=== PATIENT | male | born 1935 | race Caucasian/White ===

== ENCOUNTER 2017-10-24 13:38 | Emergency (ER) | payer MEDICARE, OTHER ==
[~2017-10-24] VITALS: Ht 170.2 cm; Wt 70.8 kg
[~2017-10-24 13:38] MED LIST: ASPI-1100 PO; ATOR10TA PO; CALC-838 PO; Cyclobenzaprine Hcl PO; GABA-532 PO; TAMS0.4C34 PO; VALS160T2 PO
--- NOTE | 2017-10-24 13:40 | NUR ---
PATIENT TO ED DT URINARY RETENTION X 7 HOURS. PATIENT NOTED FEBRILE- 102.2. PT IN NO DISTRESS. RR EVEN AND UNLABORED. CONNECTED PT TO TELE MONITOR. PENDING MD CALHOUN
[2017-10-24] MEDS ORDERED: LEVOFLOXACIN 750 MG /D5W 150ML 150 ML IV ONE ×2 (15:23→15:30)
[2017-10-24] MEDS ORDERED: ACETAMINOPHEN 325 MG TABLET ONE (15:23)
[2017-10-24] MEDS ORDERED: IV NS 0.9% 1,000 ML BAG IV ONE (15:30)
[2017-10-24] MEDS ORDERED: ACETAMINOPHEN 325 MG TABLET PO ONE (15:30)
[2017-10-24 15:42] LABS: BASOPHILS # (AUTO) 0.2 /CMM (0.0-0.2); BASOPHILS % (AUTO) 1.5 % (0.0-2.0); EOSINOPHILS % (AUTO) 0.1 % (0.0-6.0); HEMATOCRIT 41 % (39-51); HEMOGLOBIN 14.4 g/dL (13.5-17.5); LYMPHOCYTES # (AUTO) 0.7 /CMM (0.8-4.8); LYMPHOCYTES % (AUTO) 5.7 % (20.0-44.0); MEAN CORPUSCULAR HEMOGLOBIN 34 PG (26.0-33.0); MEAN CORPUSCULAR HGB CONC 35 g/dl (31.0-36.0); MEAN CORPUSCULAR VOLUME 99 fL (80-96); MONOCYTES # (AUTO) 0.9 /CMM (0.1-1.30); MONOCYTES % (AUTO) 8.2 % (2.0-12.0); NEUTROPHILS # (AUTO) 9.7 /CMM (1.8-8.9); NEUTROPHILS % (AUTO) 84.5 % (43.0-81.0); PLATELET COUNT (AUTO) 172 /CMM (150-450); RDW COEFFICIENT OF VARIATION 13.4 (11.5-15.0); RED BLOOD CELL COUNT(AUTO) 4.18 MIL/uL (4.5-6.0); WHITE BLOOD COUNT (AUTO) 11.5 K/uL (4.3-11.0)
[2017-10-24 15:55] LABS: CALCIUM, SERUM 9.6 mg/dL (8.5-10.1); CARBON DIOXIDE 28 mmol/L (21-32); CHLORIDE 103 mmol/L (98-107); CREATININE 0.9 mg/dL (0.6-1.3); GLUCOSE 158 mg/dL (74-106); POTASSIUM 3.6 mmol/L (3.5-5.1); SODIUM SERUM 141 mmol/L (136-145); UREA NITROGEN, BLOOD 20 mg/dL (7-18)
[2017-10-24 15:55] LABS: APPEARANCE,URINE Clear (CLEAR); BILIRUBIN,URINE Negative (NEGATIVE); BLOOD, URINE Trace-intact Ery/uL (NEGATIVE); COLOR,URINE Yellow (YELLOW); KETONES,URINE Trace (NEGATIVE); LEUKOCYTE ESTERASE ,URINE Negative (NEGATIVE); NITRITE, URINE Negative (NEGATIVE); PROTEIN,URINE Negative (NEGATIVE); UGLUCOSE Negative (NEGATIVE); UROBILINOGEN,URINE 0.2 EU/dL (0.2)
[2017-10-24 15:59] LABS: INR 1.04 (0.87-1.13); PROTHROMBIN TIME 10.8 SECS (9.5-12.7)
[2017-10-24 16:01] LABS: ALANINE AMINOTRANSFERASE 29 U/L (12-78); ALBUMIN 3.7 g/dL (3.4-5.0); ALKALINE PHOSPHATASE 104 U/L (46-116); ASPARTATE AMINOTRANSFERASE 24 U/L (15-37); BILIRUBIN,DIRECT 0.2 mg/dL (0.0-0.2); BILIRUBIN,TOTAL 0.9 mg/dL (0.2-1.0); TOTAL PROTEIN, SERUM 7.3 g/dL (6.4-8.2)
[2017-10-24 16:03] LABS: TROPONIN I < 0.017 ng/mL (0.00-0.056)
[2017-10-24 16:05] LABS: BACTERIA,URINE Rare /HPF (None Seen); SQUAMOUS EPITHELIAL CELL,UR Few /HPF (None Seen); WBC,URINE 0-2 /HPF (0-3)
[2017-10-24 17:43] VITALS: BP 120/80
--- NOTE | 2017-10-24 17:43 | NUR ---
Patient discharged to home in stable condition. Written and verbal after care instructions given. Patient verbalizes understanding of instruction.IV removed. Catheter intact and site benign. Pressure and 4x4 applied to site. No bleeding noted.
== END 2017-10-24 17:44 | disposition home or self-care (01) ==
LOC: ER 13:40
DX: R33.8 Other retention of urine (principal); R50.9 Fever, unspecified; I10 Essential (primary) hypertension; Z86.73 Personal history of transient ischemic attack (TIA), and cerebral infarction without residual deficits; Z88.1 Allergy status to other antibiotic agents; Z88.8 Allergy status to other drugs, medicaments and biological substances; Z79.82 Long term (current) use of aspirin
CPT/HCPCS: 36415; 51702; 71010; 80048; 80076; 81001; 83605; 84484; 85025; 85730; 87040 ×2; 87086; 93005; 99285; A4606; J1956; J7030; 81000-TC; Z7610

== ENCOUNTER 2018-05-24 21:06 | Inpatient (IN) | payer MEDICAID, MEDICARE ==
[~2018-05-24] VITALS: Ht 170.2 cm; Wt 72.6 kg
[2018-05-24] MEDS ORDERED: ACETAMINOPHEN ES 500 MG TABLET ONE (21:17)
[2018-05-24] MEDS ORDERED: ONDANSETRON HCL/PF 4 MG/2 ML VIAL ONE (21:17)
--- NOTE | 2018-05-24 21:25 | NUR ---
BIB RA C/C OF N/V X 2 DAYS. SECONDARY TO FEVER AND ABDOMINAL PAIN. CURRENT TEMP 101.5. PT AA/OX4. NO S/S OF SOB. DENIES CHEST PAIN. ACTIVE BOWEL MOVEMENTS. NO GAURDING TO ABDOMEN. PEDAL PULSES PRESENT. SKINS PINK WARM AND DRY. STABLE CONDITION. AWAITING MD EVAL/ ORDERS.
--- NOTE | 2018-05-24 21:28 | NUR ---
HEAD TRANSFER CLERK IS AT THE BEDSIDE FOR BLOOD DRAW. CULTURES X2 DRAWN. URINE SAMPLE SENT TO LAB.
--- NOTE | 2018-05-24 21:29 | NUR ---
XRAY IN PROGRESS AT THE BEDSIDE.
[2018-05-24] MEDS ORDERED: IV NS 0.9% 1,000 ML BAG IV ONE (21:30)
[2018-05-24] MEDS ORDERED: ACETAMINOPHEN ES 500 MG TABLET PO ONE (21:30)
[2018-05-24] MEDS ORDERED: ONDANSETRON HCL/PF 4 MG/2 ML VIAL IVP ONE (21:30)
[2018-05-24 21:33] LABS: BASOPHILS % (AUTO) 0.3 % (0.0-2.0); HEMATOCRIT 38 % (39-51); HEMOGLOBIN 12.8 g/dL (13.5-17.5); LYMPHOCYTES # (AUTO) 0.4 /CMM (0.8-4.8); MEAN CORPUSCULAR HEMOGLOBIN 33 PG (26.0-33.0); MEAN CORPUSCULAR HGB CONC 34 g/dl (31.0-36.0); MEAN CORPUSCULAR VOLUME 98 fL (80-96); MONOCYTES # (AUTO) 0.6 /CMM (0.1-1.30); NEUTROPHILS # (AUTO) 4.2 /CMM (1.8-8.9); NEUTROPHILS % (AUTO) 78.7 % (43.0-81.0); PLATELET COUNT (AUTO) 155 /CMM (150-450); RDW COEFFICIENT OF VARIATION 12.4 (11.5-15.0); RED BLOOD CELL COUNT(AUTO) 3.85 MIL/uL (4.5-6.0); WHITE BLOOD COUNT (AUTO) 5.3 K/uL (4.3-11.0)
[2018-05-24 21:40] LABS: APPEARANCE,URINE Clear (CLEAR); BILIRUBIN,URINE Negative (NEGATIVE); BLOOD, URINE Small Ery/uL (NEGATIVE); COLOR,URINE Yellow (YELLOW); KETONES,URINE Negative (NEGATIVE); LEUKOCYTE ESTERASE ,URINE Negative (NEGATIVE); NITRITE, URINE Negative (NEGATIVE); PH,URINE 6.5 (5.0-8.0); PROTEIN,URINE Negative (NEGATIVE); UGLUCOSE Negative (NEGATIVE); UROBILINOGEN,URINE 0.2 EU/dL (0.2)
[2018-05-24 21:49] LABS: ALANINE AMINOTRANSFERASE 42 U/L (12-78); ALBUMIN 3.3 g/dL (3.4-5.0); ALKALINE PHOSPHATASE 104 U/L (46-116); ASPARTATE AMINOTRANSFERASE 30 U/L (15-37); BILIRUBIN,DIRECT 0.1 mg/dL (0.0-0.2); BILIRUBIN,TOTAL 0.3 mg/dL (0.2-1.0); CALCIUM, SERUM 8.9 mg/dL (8.5-10.1); CARBON DIOXIDE 29 mmol/L (21-32); CHLORIDE 97 mmol/L (98-107); CREATININE 1.1 mg/dL (0.6-1.3); GLUCOSE 156 mg/dL (74-106); POTASSIUM 4.1 mmol/L (3.5-5.1); SODIUM SERUM 132 mmol/L (136-145); TOTAL PROTEIN, SERUM 7.2 g/dL (6.4-8.2); UREA NITROGEN, BLOOD 15 mg/dL (7-18)
[2018-05-24 21:51] LABS: BACTERIA,URINE Few /HPF (None Seen); SQUAMOUS EPITHELIAL CELL,UR Few /HPF (None Seen); WBC,URINE 0-2 /HPF (0-3)
[2018-05-24 21:52] LABS: TROPONIN I < 0.017 ng/mL (0.00-0.056)
[2018-05-24 22:03] LABS: INR 1.06 (0.85-1.15)
--- NOTE | 2018-05-24 22:20 | NUR ---
DR. PICKETT AT THE BEDSIDE.
--- NOTE | 2018-05-24 22:20 | NUR ---
RT NARE INFLUENZA SWAB DONE. LAB CALLED FOR P/U.
[2018-05-24] MEDS ORDERED: IV NS 0.9% 1,000 ML IV ONE (22:22)
--- NOTE | 2018-05-24 22:23 | NUR ---
Patient is resting comfortably in bed with eyes closed. Easily aroused. VSS. FAMILY AT BEDSIDE. SAFETY MEASURES IN PLACE. CALL LIGHT WITHIN REACH.
[2018-05-24] MEDS ORDERED: IBUPROFEN 400 MG TABLET PO ONE (23:30)
[2018-05-24] MEDS ORDERED: GABA-534 PO (23:42)
--- NOTE | 2018-05-24 23:50 | NUR ---
ASSIGNED TO MED SURG RM#: [id number], DX: FEVER, ACCEPTING: CHIDI ERNST NP
[2018-05-24] MEDS ORDERED: BIMA2.5D5 OP (23:59)
[2018-05-24] MEDS ORDERED: PRED5DRO16 OP (23:59)
[2018-05-24] MEDS ORDERED: BRIM5DRO3 OP (23:59)
[2018-05-24] MEDS ORDERED: TIMO5SOL11 OP (23:59)
--- NOTE | 2018-05-25 00:07 | NUR ---
REPORT GIVEN TO MED/SURGE RICKY ANN
[2018-05-25 00:25] VITALS: BP 107/51
[2018-05-25 00:30] VITALS: BP 107/51
[2018-05-25] MEDS ORDERED: MAG HYDROX/AL HYDROX/SIMETH 30 ML UDC PO PRN (00:30)
[2018-05-25] MEDS ORDERED: MAGNESIUM HYDROXIDE 30 ML UDC PO PRN (00:30)
[2018-05-25] MEDS ORDERED: HYDROCODONE/APAP 5/325MG 1 EACH TABLET PO PRN (00:30)
[2018-05-25] MEDS ORDERED: ONDANSETRON HCL/PF 4 MG/2 ML VIAL IVP PRN (00:30)
[2018-05-25] MEDS ORDERED: ACETAMINOPHEN 325 MG TABLET PO PRN (00:30)
[2018-05-25] MEDS ORDERED: Z GUARD REMEDY 2 OZ OINT TP PRN (00:30)
--- NOTE | 2018-05-25 00:34 | NUR ---
PT TRANSP TO MED/SURG STABLE CONDITION. NAD. VSS.
--- NOTE | 2018-05-25 00:35 | NUR ---
RN OPENING NOTES RECEIVED REPORT FROM DOCUMENT ADVISOR ALEXUS. Pt ARRIVED TO THE FLOOR VIA GURNEY. WITH FAMILY AT BEDSIDE. Pt IS AMBULATORY WITH STEADY GAIT. NO S/S OF ACUTE DISTRESS OR SOB NOTED. MEDSURG Pt. Pt IS A/OX4, VERBAL, ABLE TO MAKE NEEDS KNOWN. NIGERIEN SPEAKING, BUT IS OK WITH SOME ALGERIAN. IV ACCESS ON LFA #18G. SAFETY MEASURES IN PLACE. BED LOW, LOCKED, HOB ELEVATED, SIDE RAILS UP, CALL LIGHT AND BEDSIDE TABLE WITHIN REACH. WILL CONTINUE TO MONITOR Pt THROUGHOUT THE NIGHT FOR SAFETY.
[2018-05-25] MEDS: IV NS 0.9% 1,000 ML IV PRN (05:25)
[2018-05-25 06:31] LABS: BASOPHILS % (AUTO) 0.2 % (0.0-2.0); EOSINOPHILS % (AUTO) 0.9 % (0.0-6.0); HEMATOCRIT 35 % (39-51); LYMPHOCYTES # (AUTO) 0.9 /CMM (0.8-4.8); LYMPHOCYTES % (AUTO) 19.9 % (20.0-44.0); MEAN CORPUSCULAR HEMOGLOBIN 34 PG (26.0-33.0); MEAN CORPUSCULAR HGB CONC 34 g/dl (31.0-36.0); MEAN CORPUSCULAR VOLUME 100 fL (80-96); MONOCYTES # (AUTO) 0.9 /CMM (0.1-1.30); MONOCYTES % (AUTO) 19.3 % (2.0-12.0); NEUTROPHILS # (AUTO) 2.7 /CMM (1.8-8.9); NEUTROPHILS % (AUTO) 59.7 % (43.0-81.0); PLATELET COUNT (AUTO) 124 /CMM (150-450); WHITE BLOOD COUNT (AUTO) 4.5 K/uL (4.3-11.0)
[2018-05-25 06:41] LABS: CHOLESTEROL 83 mg/dL (<200); HDL CHOLESTEROL 40 mg/dL (40-60); LDL 37 mg/dL (0-99); THYROID STIMULATING HORMONE 0.672 uIU/mL (0.358-3.74); TRIGLYCERIDES 51 mg/dL (30-150)
--- NOTE | 2018-05-25 06:45 | NUR ---
RN CLOSING NOTES NO SIGNIFICANT CHANGES IN Pt's CONDITION. Pt REMAINS STABLE AT THIS TIME. NO S/S OF ACUTE DISTRESS OR SOB NOTED DURING THE NIGHT. ALL NEEDS MET AND ATTENDED TO. SAFETY MEASURES IN PLACE. WILL ENDORSE TO DAYSHIFT RN FOR Pt's NATE.
[2018-05-25 06:55] LABS: CARBON DIOXIDE 27 mmol/L (21-32); CHLORIDE 106 mmol/L (98-107); CREATININE 0.9 mg/dL (0.6-1.3); GLUCOSE 120 mg/dL (74-106); MAGNESIUM 1.9 mg/dL (1.8-2.4); PHOSPHORUS 3.3 mg/dL (2.5-4.9); POTASSIUM 3.8 mmol/L (3.5-5.1); SODIUM SERUM 142 mmol/L (136-145); UREA NITROGEN, BLOOD 12 mg/dL (7-18)
[2018-05-25 07:01] LABS: CALCIUM, SERUM 8.3 mg/dL (8.5-10.1)
--- NOTE | 2018-05-25 07:15 | NUR ---
MS RN INITIAL NOTES Received patient asleep on supine position. No signs of discomfort noted. with patent and intact SL @ LFA G#18 with NS infusing well at 75ml/hr. Afebrile at this time. Kept clean dry and comfortable. Will monitor accordingly.
[2018-05-25 08:00] VITALS: BP 110/60
[2018-05-25] MEDS: TAMSULOSIN 0.4 MG CAP.SR.24H PO SCH (08:45)
[2018-05-25] MEDS: ASPIRIN EC 81 MG TABLET.DR PO SCH (08:45)
[2018-05-25] MEDS: GABAPENTIN 300 MG CAPSULE PO SCH (08:45)
[2018-05-25] MEDS: ATORVASTATIN 10 MG TABLET PO SCH (08:45)
--- NOTE | 2018-05-25 08:45 | NUR ---
ms rn notes Dr. Villafana on site and informed regarding patient on Gabapentin 300 mg and 600 mg at the same time due at 9am and per MD to d/c 600 mg capsule and okay to give 300mg capsule. All orders carried out and noted.
[2018-05-25] MEDS ORDERED: GABAPENTIN 300 MG CAPSULE PO SCH (09:00)
[2018-05-25] MEDS: VALSARTAN 80 MG TABLET PO SCH (09:41)
[2018-05-25 09:48] LABS: BAND % (MANUAL) 1 % (0.0-5.0); LYMPHOCYTES % (MANUAL) 15 % (16-48); MONOCYTES % (MANUAL) 9 % (0-11.0); NEUTROPHILS % (MANUAL) 75 (42-76)
[2018-05-25] MEDS ORDERED: TIMOLOL -XE 0.5% 5 ML BOTTLE LEFTEYE SCH (10:00)
[2018-05-25] MEDS: CALCIUM CARB 600MG /VIT D 1 EACH TABLET PO SCH (11:26)
[2018-05-25] MEDS: prednisoLONE ACET 1% OPHT DROP 5 ML BOTTLE LEFTEYE SCH ×2 (11:37→16:26)
[2018-05-25] MEDS: BRIMONIDINE TARTRATE OPHT SOLN 5 ML BOTTLE LEFTEYE SCH ×2 (11:38→16:25)
[2018-05-25] MEDS ORDERED: CYCLOBENZAPRINE 10 MG TABLET PO PRN (13:00)
[2018-05-25 16:00] VITALS: BP 121/60
[2018-05-25] MEDS: TIMOLOL 0.5% SOLN OPHTH 5 ML BOTTLE LEFTEYE SCH (16:27)
--- NOTE | 2018-05-25 16:44 | NUR ---
Patient speaks [place] and alert. She lives locally with family. She is ambulatory and independent with adl's. No DME or homehealth reported. Has good family support. Patient want to return home once discharge. Addendum: 05/25/18 at 1644 by ABAD CARNEY RN Amended: Links added.
[2018-05-25] MEDS ORDERED: FEE PK DOSING 1 MIN EA MC ONE (17:32)
[2018-05-25] MEDS: OSELTAMIVIR PHOSPHATE 75 MG CAPSULE PO SCH (17:43)
[2018-05-25] MEDS: VANCOMYCIN 0.75 GM in IV NS 0.9% 250 ML IV SCH (18:10)
--- NOTE | 2018-05-25 18:49 | NUR ---
MS RN CLOSING NOTES Patient awake on bed, with no complaints of discomfort, no respiratory distress noted. Afebrile the whole shift. Independent in ADLs with supervision for safety precautions. No new complaints made. All new orders were noted, given with no ASE noted. Patient able to tolerate physical activities without complications noted. All needs attended. Endorsed to the next shift.
--- NOTE | 2018-05-25 19:30 | NUR ---
RN MS OPENING NOTES RECEIVED PATIENT IN BED AWAKE. ALERT AND ORIENTED X3, VERBALLY RESPONSIVE, ABLE TO MAKE NEEDS KNOWN. BREATHING EVEN AND UNLABORED. NO SOB NOTED. ON 2L OF OXYGEN VIA NC SATTING AT 95%. NO COMPLAINTS OF PAIN OR DISCOMFORT. NO FACIAL GRIMACING. IV ON LEFT FA# 18 INTACT AND PATENT - CURRENTLY RUNNING NS @ 75ML/HR. SKIN DRY AND WARM TO TOUCH. ALL OTHER NEEDS ATTENDED TO. CALL LIGHT WITHIN REACH. BED ON LOWEST LOCKED POSITION. WILL CONTINUE TO MONITOR.
[2018-05-25 20:00] VITALS: BP 130/68
[2018-05-25] MEDS ORDERED: AZITHROMYCIN 500 MG in IV D5W 250 ML IV SCH (20:00)
[2018-05-25] MEDS: MEROPENEM 1 G in IV NS 0.9% 100 ML IV SCH (21:42)
[2018-05-25] MEDS ORDERED: BIMATOPROST 2.5 ML DROPS OP SCH (22:00)
--- NOTE | 2018-05-25 22:00 | NUR ---
RN MS NOTES LUMIGAN EYEDROPS NOT AVAILABLE. CHECKED CASSETTE AND BEDSIDE BUT NOT FOUND. CALLED AFTER HOURS PHARMACY AND SPOKE WITH ALANIS. PER OCT "IT SEEMS IF IT WAS NOT DELIVERED BY THE [facility], AND IF IT WILL BE DELIVERED THROUGH THEM, IT WILL COST THE PATIENT ABOUT $800+. PER OCT, FOLLOW-UP IN THE MORNING WITH THE [facility] PH[facility].
--- NOTE | 2018-05-25 22:51 | NUR ---
RN MS NOTES MILLIE MACHUCA, MADE AWARE OF BLOOD CULTURE RESULTS OF GRAM POSITIVE COCCI IN CLUSTERS IN 1 BOTTLE, WITH NO NEW ORDERS. PER MILLIE MACHUCA WE'LL WAIT FOR THE NEXT BOTTLE.
[2018-05-26] MEDS: IV NS 0.9% 1,000 ML IV PRN (03:37)
[2018-05-26] MEDS: MEROPENEM 1 G in IV NS 0.9% 100 ML IV SCH ×2 (04:04→12:36)
--- NOTE | 2018-05-26 04:15 | NUR ---
RN NOTES CHECKED TEMPERATURE TWICE. 1ST ATTEMPT 99.6F AND SECOND ATTEMPT 100.2. PATIENT WAS GIVEN 650MG OF TYLENOL WELL AN ICE BAG. WILL CONTINUE TO MONITOR.
--- NOTE | 2018-05-26 05:00 | NUR ---
RN MS NOTES PATIENT'S TEMPERATURE WENT DOWN TO 98.9F
[2018-05-26] MEDS: VANCOMYCIN 0.75 GM in IV NS 0.9% 250 ML IV SCH ×2 (05:07→17:42)
--- NOTE | 2018-05-26 07:03 | NUR ---
RN MS CLOSING NOTES PATIENT RESTING IN BED. EASILY AROUSABLE. ALERT AND ORIENTED X3, VERBALLY RESPONSIVE, ABLE TO MAKE NEEDS KNOWN. BREATHING EVEN AND UNLABORED. NO SOB NOTED. ON 2L OF OXYGEN VIA NC SATTING AT 96%. NO COMPLAINTS OF PAIN OR DISCOMFORT. NO FACIAL GRIMACING. IV ON LEFT FA# 18 INTACT AND PATENT - CURRENTLY RUNNING NS @ 75ML/HR. SKIN DRY AND WARM TO TOUCH. KEPT CLEAN, DRY, AND COMFORTABLE. ALL OTHER NEEDS ATTENDED TO. CALL LIGHT WITHIN REACH. BED ON LOWEST LOCKED POSITION. WILL ENDORSE TO ONCOMING NURSE FOR CONTINUITY FOR CARE.
--- NOTE | 2018-05-26 07:24 | NUR ---
MS RN OPENING NOTE RECEIVED PATIENT IN BED, ALERT ORIENTED X4. ON 2L O2 VIA NC. TOLERATING WELL. RESPIRATIONS EVEN AND UNLABORED. IN NO APPARENT DISTRESS OR DISCOMFORT AT THIS TIME. DENIES PAIN AND SOB. PATIENT IS ABLE TO COMMUNICATE NEEDS. AMBULATORY WITH BRP. PATIENT IWTH LEFT FA 18G IVC WITH FLUIDS RUNNING AT 75ML/HR. NO SIGNS OF INFILTRATION NOTED. PATIENT KEPT CLEAN AND COMFORTABLE, ALL NEEDS ATTENDED. SAFETY MEASURES IN PLACE, BED IN LOW LOCKED POSITION, SIDE RAILS UP X2, CALL LIGHT WITHIN EASY REACH. WILL CONTINUE TO MONITOR.
[2018-05-26 08:00] VITALS: BP 137/63
[2018-05-26] MEDS: GABAPENTIN 300 MG CAPSULE PO SCH (08:25)
[2018-05-26] MEDS: CALCIUM CARB 600MG /VIT D 1 EACH TABLET PO SCH (08:25)
[2018-05-26] MEDS: VALSARTAN 80 MG TABLET PO SCH (08:25)
[2018-05-26] MEDS: TAMSULOSIN 0.4 MG CAP.SR.24H PO SCH (08:25)
[2018-05-26] MEDS: ATORVASTATIN 10 MG TABLET PO SCH (08:25)
[2018-05-26] MEDS: ASPIRIN EC 81 MG TABLET.DR PO SCH (08:25)
[2018-05-26] MEDS: prednisoLONE ACET 1% OPHT DROP 5 ML BOTTLE LEFTEYE SCH ×2 (08:26→16:12)
[2018-05-26] MEDS: BRIMONIDINE TARTRATE OPHT SOLN 5 ML BOTTLE LEFTEYE SCH ×2 (08:26→16:12)
[2018-05-26] MEDS: TIMOLOL 0.5% SOLN OPHTH 5 ML BOTTLE LEFTEYE SCH ×2 (08:26→16:12)
[2018-05-26] MEDS: OSELTAMIVIR PHOSPHATE 75 MG CAPSULE PO SCH (08:29)
--- NOTE | 2018-05-26 09:00 | NUR ---
PATIENT NOTED TO HAVE INFILTRATED IV SITE. IV FLUIDS WERE DISCONNECTED. NEW IV PLACED IN THE OPPOSITE ARM. PREVIOUS IV CANAL WAS REMOVED, EXTREMITY ELEVATED AND ICE PACK APPLIED. WILL CONTINUE TO MONITOR.
--- NOTE | 2018-05-26 12:00 | NUR ---
INFILTRATED SITE ON PATIENT'S LEFT FOREARM STILL APPEARS ERYTHEMATOUS. ICE PACK REINFORCED TO THE PATIENT. REFUSED AT THIS TIME. STATES HE WILL PUT IT AGAIN LATER.
--- NOTE | 2018-05-26 13:30 | NUR ---
PATIENT REMAINS AFEBRILE. BODY TEMPERATURE IS 98.5 AT THIS TIME.
[2018-05-26] MEDS ORDERED: BIMATOPROST 2.5 ML DROPS OP SCH (14:19)
--- NOTE | 2018-05-26 15:00 | NUR ---
PATIENT APPLIED ICE PACK TO THE AFFECTED ARE FOR SOME PERIOD OF TIME, THEN REMOVED AGAIN. ERYTHEMA HAS IMPROVED SLIGHTLY. PATIENT IS NON-COMPLIANT WITH DIRECTIONS, STATES HE WILL PUT SOME ICE LATER AFTER HE GOES HOME.
[2018-05-26 16:00] VITALS: BP 148/67
[2018-05-26] MEDS ORDERED: AZIT1PAC9 PO (16:36)
[2018-05-26] MEDS ORDERED: LACTOBACILLUS RHAMNOSUS GG 1 EACH CAP.SPRINK PO SCH (17:00)
--- NOTE | 2018-05-26 18:00 | NUR ---
WARM PACK APPLIED TO PATIENT'S AFFECTED ARM. SWELLING AND REDNESS DECREASED SIGNIFICANTLY. HOWEVER PATIENT REMOVED THE PACK AGAIN AFTER SHORT PERIOD OF TIME. WILL REINFORCE TREATMENT AND CONTINUE TO MONITOR.
--- NOTE | 2018-05-26 19:00 | NUR ---
MS FLIGHT DATA TECHNICIAN NOTE RECEIVED ODER FOR DISCHARGE. PATIENT IN STABLE CONDITION, VITAL SIGNS WNL. ALERT ORIENTED X4. ON ROOM AIR WITH O2 SATURATION ABOVE 97%. ALL DUE MEDICATIONS GIVEN, DISCHARGE INSTRUCTIONS PREPARED VIA EXITCARE. EDUCATION PROVIDED TO THE PATIENT, VERBALLY AND VIA HANDOUT, REGARDING NEW AND OLD MEDICATIONS, DISCHARGE INSTRUCTIONS AND FOLLOW UP CARE. PAPERWORK SIGNED, NEW PRESCRIPTION FOR MEDICATION IS AVAILABLE FOR PICKUP AT THEIR PREFERRED PHARMACY. ALL BELONGINGS ARE CHECKED AND ACCOUNTED FOR. IVC REMOVED UPON DEPARTURE, TIP INTACT, NO SIGN OF INFECTION OBSERVED. ID BAND REMOVED. PATIENT LEFT THE UNIT ON A WHEELCHAIR ESCORTED BY ABIOLA PRATT AND THE FAMILY AT 1855.
[2018-05-26] MEDS ORDERED: TIMOLOL 0.5% SOLN OPHTH 5 ML BOTTLE LEFTEYE SCH (21:00)
[2018-05-26] MEDS ORDERED: prednisoLONE ACET 1% OPHT DROP 5 ML BOTTLE LEFTEYE SCH (21:00)
[2018-05-26] MEDS ORDERED: BRIMONIDINE TARTRATE OPHT SOLN 5 ML BOTTLE LEFTEYE SCH (21:00)
== END 2018-05-26 19:00 | disposition home or self-care (01) | DRG 153 ==
LOC: ER 21:12 → MED 23:52
PROVIDERS: ADMIT Nurse Practitioner Acute Care; ATTEND Nurse Practitioner Acute Care
DX: J11.1 Influenza due to unidentified influenza virus with other respiratory manifestations (principal); E87.1 Hypo-osmolality and hyponatremia; I10 Essential (primary) hypertension; Z86.73 Personal history of transient ischemic attack (TIA), and cerebral infarction without residual deficits; N40.0 Benign prostatic hyperplasia without lower urinary tract symptoms; G62.9 Polyneuropathy, unspecified; E78.5 Hyperlipidemia, unspecified; I70.90 Unspecified atherosclerosis; Z87.891 Personal history of nicotine dependence; I25.10 Atherosclerotic heart disease of native coronary artery without angina pectoris; K21.9 Gastro-esophageal reflux disease without esophagitis
CPT/HCPCS: 36415; 71045-TC; 80048-TC; 80061-TC; 80076-TC; 81000-TC; 83605-TC; 83735-TC; 84100-TC; 84443-TC; 84484-TC; 85025-TC; 85730-TC; 87040-TC; 87081-TC; 87086-TC; 87400; A4606; J0456; J2185; J2405; J3370; J7030; J7050; J7060; Z7610

== ENCOUNTER 2021-11-01 09:36 | Inpatient (IN) | payer MEDICAID, MEDICARE, OTHER ==
[~2021-11-01] VITALS: Ht 170.2 cm; Wt 73.9 kg
[~2021-11-01 09:36] MED LIST changes: +AZIT1PAC9 PO; +BIMA2.5D5 OP; +BRIM5DRO3 OP; -GABA-532 PO; +GABA-534 PO; +PRED5DRO16 OP; +TIMO5SOL11 OP
--- NOTE | 2021-11-01 10:10 | NUR ---
BIB FAMILY FROM HOME,"SICK"SINCE ,NO APPETITE,CONFUSED/SLOW TO RESPOND X3 DAYS. BREATHING REGULAR AND UNLABORED. ATTCHED TO MONITOR.
--- NOTE | 2021-11-01 10:10 | NUR ---
MOVE SHEET SUBMITTED
--- NOTE | 2021-11-01 10:21 | NUR ---
IV ESTABLISHED #20G R FOREARM, LABS WERE DRAWN A COLLECTED AT BEDSIDE, CONVERTED TO SALIN LOCK
--- NOTE | 2021-11-01 10:29 | NUR ---
COVID PCR AND ANTIGEN TAKEN AND COLLECTED.
[2021-11-01] MEDS ORDERED: IV NS 0.9% 500 ML BAG IV ONE (10:30)
[2021-11-01 10:42] LABS: BASOPHILS % (AUTO) 0.2 % (0.0-2.0); HEMATOCRIT 37 % (39-51); HEMOGLOBIN 12.3 g/dL (13.5-17.5); LYMPHOCYTES # (AUTO) 0.6 K/uL (0.8-4.8); LYMPHOCYTES % (AUTO) 18.3 % (20.0-44.0); MEAN CORPUSCULAR HGB CONC 34 g/dl (31.0-36.0); MEAN CORPUSCULAR VOLUME 101 fL (80-96); MONOCYTES # (AUTO) 0.6 K/uL (0.1-1.30); MONOCYTES % (AUTO) 19.5 % (2.0-12.0); NEUTROPHILS # (AUTO) 2.1 K/uL (1.8-8.9); PLATELET COUNT (AUTO) 128 K/uL (150-450); RED BLOOD CELL COUNT(AUTO) 3.62 MIL/uL (4.5-6.0); WHITE BLOOD COUNT (AUTO) 3.3 K/uL (4.3-11.0)
--- NOTE | 2021-11-01 10:49 | NUR ---
Note juani in ED - 11/01/21 at 1050 by CARMEN BIB FAMILY FROM HOME,"SICK"SINCE ,NO APPETITE,CONFUSED/SLOW TO RESPOND X3 DAYS. BREATHING REGULAR AND UNLABORED. ATTCHED TO MONITOR.
[2021-11-01] MEDS ORDERED: DUTA0.5C37 PO (11:06)
[2021-11-01] MEDS ORDERED: AMLO-212 PO (11:06)
[2021-11-01] MEDS ORDERED: METF-440 PO (11:06)
[2021-11-01] MEDS ORDERED: BRIM5DRO2 LEFTEYE (11:06)
[2021-11-01] MEDS ORDERED: LATA2.5D15 LEFTEYE (11:08)
[2021-11-01] MEDS ORDERED: LOSA50TA39 PO (11:09)
--- NOTE | 2021-11-01 11:12 | NUR ---
PT TAKEN TO CT
[2021-11-01 11:16] LABS: THYROID STIMULATING HORMONE 0.742 uIU/mL (0.358-3.74)
--- NOTE | 2021-11-01 11:30 | NUR ---
PATIENT GOT AUTHORIZATION TO GET ADMITTED
--- NOTE | 2021-11-01 11:40 | NUR ---
URINE COLLECTED AND SENT
--- NOTE | 2021-11-01 11:55 | NUR ---
[facility] [phone]
[2021-11-01 12:00] LABS: BILIRUBIN,URINE NEGATIVE (NEGATIVE); COLOR,URINE YELLOW (YELLOW); LEUKOCYTE ESTERASE ,URINE NEGATIVE (NEGATIVE); NITRITE, URINE NEGATIVE (NEGATIVE); PROTEIN,URINE NEGATIVE (NEGATIVE); UGLUCOSE NEGATIVE (NEGATIVE); UROBILINOGEN,URINE 0.2 EU/dL (0.2)
[2021-11-01 12:01] LABS: ALANINE AMINOTRANSFERASE 32 U/L (12-78); ALKALINE PHOSPHATASE 62 U/L (46-116); ASPARTATE AMINOTRANSFERASE 30 U/L (15-37); BILIRUBIN,DIRECT 0.1 mg/dL (0.0-0.2); BILIRUBIN,TOTAL 0.4 mg/dL (0.2-1.0); CALCIUM, SERUM 8.7 mg/dL (8.5-10.1); CARBON DIOXIDE 22 mmol/L (21-32); CHLORIDE 92 mmol/L (98-107); CREATININE 1.1 mg/dL (0.6-1.3); GLUCOSE 182 mg/dL (74-106); POTASSIUM 4.3 mmol/L (3.5-5.1); SODIUM SERUM 128 mmol/L (136-145); TOTAL PROTEIN, SERUM 7.3 g/dL (6.4-8.2); UREA NITROGEN, BLOOD 20 mg/dL (7-18)
--- NOTE | 2021-11-01 12:50 | NUR ---
CALLED FOR TELE BED.
--- NOTE | 2021-11-01 12:54 | NUR ---
GOT BED 115-2
--- NOTE | 2021-11-01 12:55 | NUR ---
[facility] CALLED STRESS ANALYST PAGED.
[2021-11-01] MEDS ORDERED: DEXAMETHASONE SOD PHOSPHATE 10 MG/ML VIAL IV ONE (13:30)
--- NOTE | 2021-11-01 13:40 | NUR ---
CALLED [facility] AGAIN BEHAVIORAL INSTRUCTOR PAGED.
[2021-11-01] MEDS ORDERED: DEXAMETHASONE SOD PHOSPHATE 10 MG/ML VIAL ONE (13:54)
--- NOTE | 2021-11-01 14:10 | NUR ---
Anya gloria in [place] - 11/01/21 at 1554 by CARMEN REPORT GIVEN TO ONEIDA
[2021-11-01] MEDS ORDERED: ONDANSETRON HCL/PF 4 MG/2 ML VIAL IVP PRN (15:00)
[2021-11-01] MEDS ORDERED: MAG HYDROX/AL HYDROX/SIMETH 30 ML UDC PO PRN (15:00)
[2021-11-01] MEDS ORDERED: Z GUARD REMEDY 4 OZ OINT TP PRN (15:00)
[2021-11-01] MEDS ORDERED: MAGNESIUM HYDROXIDE 30 ML UDC PO PRN (15:00)
[2021-11-01] MEDS ORDERED: ZOLPIDEM TARTRATE 5 MG TABLET PO PRN (15:00)
[2021-11-01] MEDS ORDERED: HYDROCODONE/APAP 5/325MG TABLET PO PRN (15:00)
[2021-11-01] MEDS ORDERED: ACETAMINOPHEN 325 MG TABLET PO PRN (15:00)
[2021-11-01] MEDS ORDERED: ALBUTEROL FS 2.5 MG/0.5 ML VIAL.NEB IH PRN (15:30)
[2021-11-01] MEDS: LEVOFLOXACIN 750 MG /D5W 150ML 750 MG in PREMIX 1 EA IV SCH (15:32)
[2021-11-01 15:42] LABS: C-REACTIVE PROTEIN 3.6 mg/dL (0.0-0.9)
[2021-11-01 15:49] LABS: ACETAMINOPHEN 0 ug/ml (10-30); ALCOHOL, BLOOD < 3 mg/dL (0-0)
--- NOTE | 2021-11-01 15:52 | NUR ---
GOT BED 110 TY
--- NOTE | 2021-11-01 15:59 | NUR ---
REPORT GIVEN TO CASSIE FOR NATE
[2021-11-01 16:00] VITALS: BP 121/74
--- NOTE | 2021-11-01 16:32 | NUR ---
PT TRANSPORTED USING ACLS PROTOCOL
--- NOTE | 2021-11-01 16:45 | NUR ---
PT RECEIVED IN STABLE CONDITION VIA ACLS PROTOCOL
[2021-11-01 17:03] LABS: BAND % (MANUAL) 1 % (0.0-5.0); LYMPHOCYTES % (MANUAL) 24 % (16-48); MONOCYTES % (MANUAL) 3 % (0-11.0); NEUTROPHILS % (MANUAL) 72 (42-76)
--- NOTE | 2021-11-01 18:50 | NUR ---
RN CLOSING NOTE PT IS RESTING IN BED ALERT AND ORIENTED X 4 ON ROOM AIR TOLERATING WELL, BREATHING EVEN AND UNLABORED, TELE READING SR HR 85, PT IS AMBULATORY BUT COMPLAINS OF WEAKNESS. SKIN IS INTACT. IV ON THE RFA PATENT AND FLUSHING WELL, ISOLATION PRECAUTION IN PLACE, SAFETY MEASURES IMPLEMENTED CALL LIGHT WITHIN REACH, BED LOCKED AND IN LOWEST POSITION WILL ENDORSE TO FRUIT AND VEGETABLE FACTORY WORKERPHOTO TECH
[2021-11-01] MEDS: IV NS 0.9% 1,000 ML IV PRN (18:59)
[2021-11-01 19:20] LABS: SERUM AMMONIA 22 umol/L (11-32)
--- NOTE | 2021-11-01 19:37 | NUR ---
RN NOTE RECEIVED PATIENT IN BED, AWAKE, ALERT, AND VERBALLY RESPONSIVE. AOX4. BREATHING EVEN AND UNLABORED AT THIS TIME. DENIES FEELING SOB. TOLERATING ROOM AIR. HOB ELEVATED 35 DEGREES. DENIES CHEST PAIN AT THIS TIME. SKIN WARM AND DRY. NOTED WITH RIGHT FOREARM 20G, PATENT. RUNNING NS AT 75 ML/HR. NO INFILTRATION NOTED. NO BLEEDING NOTED. DENIES PAIN. BED LOW, IN LOCKED POSITION. CALL LIGHT WITHIN REACH.
[2021-11-01 20:00] VITALS: BP 115/73
[2021-11-01] MEDS: ENOXAPARIN SODIUM 40 MG/0.4 ML DISP.SYRIN SQ SCH (22:19)
[2021-11-02] VITALS: BP 140/77
[2021-11-02 04:00] VITALS: BP 142/83
[2021-11-02] MEDS: IV NS 0.9% 1,000 ML IV PRN (05:58)
--- NOTE | 2021-11-02 07:47 | NUR ---
RN OPEN NOTE RECEIVED PATIENT IN BED, AWAKE, ALERT AND ORIENTED X4 BREATHING EVEN AND UNLABORED TOLERATING ROOM AIR WELL NO SOB OR DISTRESS NOTED AT THIS TIME HOB ELEVATED, NO COMPLAINS OF PAIN AT THIS TIME, SKIN WARM AND DRY. PT IV ON THE RIGHT FOREARM #20G, PATENT. RUNNING NS AT 75 ML/HR. NO INFILTRATION NOTED. SAFETY MEASURES IN PLACE BED LOW AND IN LOCKED POSITION. CALL LIGHT WITHIN REACH WILL CONTINUE TO MONITOR
[2021-11-02 08:00] VITALS: BP 159/78
[2021-11-02] MEDS: DEXAMETHASONE SOD PHOSPHATE 10 MG/ML VIAL IV SCH (08:01)
[2021-11-02] MEDS: PANTOPRAZOLE 40 MG TABLET.DR PO SCH (08:01)
[2021-11-02 08:55] LABS: CALCIUM, SERUM 8.8 mg/dL (8.5-10.1); CREATININE 0.8 mg/dL (0.6-1.3); PHOSPHORUS 2.8 mg/dL (2.5-4.9); POTASSIUM 3.8 mmol/L (3.5-5.1)
[2021-11-02 09:06] LABS: BASOPHILS % (AUTO) 0.2 % (0.0-2.0); HEMATOCRIT 37 % (39-51); HEMOGLOBIN 12.7 g/dL (13.5-17.5); LYMPHOCYTES # (AUTO) 0.6 K/uL (0.8-4.8); LYMPHOCYTES % (AUTO) 28.6 % (20.0-44.0); MEAN CORPUSCULAR HGB CONC 35 g/dl (31.0-36.0); MEAN CORPUSCULAR VOLUME 99 fL (80-96); MONOCYTES # (AUTO) 0.4 K/uL (0.1-1.30); MONOCYTES % (AUTO) 20.8 % (2.0-12.0); NEUTROPHILS % (AUTO) 50.4 % (43.0-81.0); PLATELET COUNT (AUTO) 135 K/uL (150-450); RED BLOOD CELL COUNT(AUTO) 3.71 MIL/uL (4.5-6.0)
--- NOTE | 2021-11-02 12:00 | NUR ---
RN NOTE SPOKE WITH DAUGHTER ABOUT PT CONDITION, ROUND MADE PT IS STABLE TOLERATING ROOM AIR WELL, AMBULATORY, WILL CONTINUE TO MONITOR
[2021-11-02] MEDS: LEVOFLOXACIN 750 MG /D5W 150ML 750 MG in PREMIX 1 EA IV SCH (15:18)
[2021-11-02 16:00] VITALS: BP 149/72
--- NOTE | 2021-11-02 18:42 | NUR ---
RN OPEN NOTE PT REMAINS IN BED, AWAKE, ALERT AND ORIENTED X4 BREATHING EVEN AND UNLABORED TOLERATING ROOM AIR WELL NO SOB OR DISTRESS NOTED AT THIS TIME HOB ELEVATED, NO COMPLAINS OF PAIN AT THE MOMENT, SKIN WARM AND DRY. PT IV ON THE RIGHT ANTECUBITAL G#22 , PATENT. RUNNING NS AT 75 ML/HR. NO INFILTRATION NOTED. ALL NEEDS MET, NO SIGNIFICANT CHANGES DURING SHIFT . SAFETY MEASURES IN PLACE BED LOW AND IN LOCKED POSITION. CALL LIGHT WITHIN REACH WILL ENDORSE TO LAMP DEVELOPERCUTTING MACHINE OPERATOR HELPER
--- NOTE | 2021-11-02 19:43 | NUR ---
RN NOTE RECEIVED PATIENT IN BED, AWAKE, ALERT, AND VERBALLY RESPONSIVE. AOX4. BREATHING EVEN AND UNLABORED. NO SOB NOTED. CURRENTLY ON ROOM AIR. HOB ELEVATED 45 DEGREES. DENIES SOB. DENIES CHEST PAIN. NO TELE-MONITORING. SKIN WARM AND DRY. NOTED WITH RIGHT AC 22G, RUNNING NS AT 75 CC/HR. NO INFILTRATION NOTED. NO COUGH/CONGESTION NOTED AT THIS TIME. DENIES FEELING N/V. PATIENT PROVIDED WITH URINAL. BED LOW, IN LOCKED POSITION. CALL LIGHT WITHIN REACH.
[2021-11-02 20:00] VITALS: BP 146/63
[2021-11-02] MEDS: ENOXAPARIN SODIUM 40 MG/0.4 ML DISP.SYRIN SQ SCH (20:11)
[2021-11-02 20:25] LABS: BAND % (MANUAL) 2 % (0.0-5.0); LYMPHOCYTES % (MANUAL) 30 % (16-48); MONOCYTES % (MANUAL) 14 % (0-11.0); NEUTROPHILS % (MANUAL) 54 (42-76)
[2021-11-03] MEDS: IV NS 0.9% 1,000 ML IV PRN (03:25)
[2021-11-03 04:00] VITALS: BP 149/71
--- NOTE | 2021-11-03 07:55 | NUR ---
RN NOTE PT AWAKE, ALERT, AND VERBALLY RESPONSIVE. AOX4. BREATHING EVEN AND UNLABORED. NO SOB NOTED. CURRENTLY ON ROOM AIR. HOB ELEVATED 45 DEGREES. DENIES SOB. DENIES CHEST PAIN. NO TELE-MONITORING. SKIN WARM AND DRY. NOTED WITH RIGHT AC 22G, RUNNING NS AT 75 CC/HR. NO INFILTRATION NOTED. NO COUGH/CONGESTION NOTED AT THIS TIME. DENIES FEELING N/V. PATIENT PROVIDED WITH URINAL. BED LOW, IN LOCKED POSITION. CALL LIGHT WITHIN REACH.
[2021-11-03] MEDS: PANTOPRAZOLE 40 MG TABLET.DR PO SCH (09:06)
[2021-11-03] MEDS: DEXAMETHASONE SOD PHOSPHATE 10 MG/ML VIAL IV SCH (09:07)
[2021-11-03 09:35] LABS: CALCIUM, SERUM 8.1 mg/dL (8.5-10.1); CREATININE 0.8 mg/dL (0.6-1.3); MAGNESIUM 2.1 mg/dL (1.8-2.4); PHOSPHORUS 2.8 mg/dL (2.5-4.9)
[2021-11-03 12:00] VITALS: BP 167/79
[2021-11-03] MEDS: LEVOFLOXACIN (250MG) 250 MG TABLET PO SCH (14:01)
--- NOTE | 2021-11-03 17:43 | NUR ---
RN NOTE PER DR. ALBERT HOLD MORPHINE. PT AGITATED AND STATES HE WILL GO INTO WITHDRAWAL. DR. ALBERT ORDERED LIBRIUM AND ATIVAN. Addendum: 11/03/21 at 1813 by JEFF OQUENDO RN WRONG PT
[2021-11-03] MEDS ORDERED: CHLORDIAZEPOXIDE HCL 5 MG CAPSULE PO SCH (18:00)
[2021-11-03] MEDS ORDERED: LORAZEPAM INJ 2 MG/ML VIAL IV PRN (18:00)
--- NOTE | 2021-11-03 18:11 | NUR ---
RN NOTE PER FAMILY WANTS HOME MEDS RECON. MESSAGED AND PAGED DR. CHRISTIAN Washburn. NO RESPONSE WILL ENDORSE
--- NOTE | 2021-11-03 19:45 | NUR ---
RN OPENING NOTE PT AWAKE, ALERT, AND VERBALLY RESPONSIVE. A/OX4. BREATHING EVENLY WITH NO SOB NOTED. PATIENT ON ROOM AIR. HOB ELEVATED 45 DEGREES. DENIES SOB. DENIES CHEST PAIN. NO TELE-MONITORING. SKIN WARM AND DRY. NOTED WITH RIGHT AC 22G, RUNNING NS AT 75 CC/HR. NO INFILTRATION NOTED. NO COUGH/CONGESTION NOTED AT THIS TIME. DENIES FEELING N/V. PATIENT PROVIDED WITH URINAL. BED LOW, IN LOCKED POSITION. CALL LIGHT WITHIN REACH.
[2021-11-03 20:00] VITALS: BP 166/68
[2021-11-03] MEDS: ENOXAPARIN SODIUM 40 MG/0.4 ML DISP.SYRIN SQ SCH (22:06)
--- NOTE | 2021-11-03 22:30 | NUR ---
RN NOTE CONTACTED SVEN, PATIENTS BP WAS 178/59. I INFORMED HER THAT THE PATIENT TAKES BP HOME MEDS AND THAT HIS MED RECON HAS NOT BEEN COMPLETED. HAS NOT COMPLETED THE MED RECON. SVEN COMPLETED THE MED RECON AND I ADMINISTERED THE MEDS SCHEDULED.
[2021-11-03] MEDS ORDERED: ATORVASTATIN 10 MG TABLET PO SCH (22:50)
[2021-11-03] MEDS ORDERED: TAMSULOSIN 0.4 MG CAP.SR.24H PO SCH (23:00)
[2021-11-03] MEDS: LATANOPROST EYE DROP 0.005% 2.5 ML BOTTLE LEFTEYE SCH (23:34)
[2021-11-03] MEDS: CHOLECALCIFEROL 1,000 UNIT TABLET (VIT D3) PO SCH (23:45)
[2021-11-03] MEDS: ASPIRIN EC 81 MG TABLET.DR PO SCH (23:45)
[2021-11-03] MEDS: AMLODIPINE BESYLATE 5 MG TABLET PO SCH (23:46)
[2021-11-03] MEDS: GABAPENTIN 300 MG CAPSULE PO SCH (23:47)
[2021-11-03] MEDS: LOSARTAN POTASSIUM 50 MG TABLET PO SCH (23:47)
[2021-11-03] MEDS: METFORMIN 500 MG TABLET PO SCH (23:47)
--- NOTE | 2021-11-04 01:14 | NUR ---
RN NOTE CONTACTED SVEN, PATIENT MED SURG BUT WAS ON TELE MONITOR AND HIS HR WAS IN THE 40'S. SHE ADVISED TO TRANSFER THE PATIENT TO TELE. ORDER FOLLOWED.
[2021-11-04 04:00] VITALS: BP 151/68
--- NOTE | 2021-11-04 07:40 | NUR ---
RN OPENING NOTES RECEIVED PATIENT AWAKE, ALERT/ORIENTED X 4 PATIENT ON ROOM AIR. BREATHING EVEN AND UNLABORED. NO SOB OR ANY ACUTE DISTRESS NOTED. ON TELE MONITOR SHOWING SB HEARTRATE 48 IV ACCESS ON RIGHT ANTECUBITAL. PATENT AND INTACT, INFUSING NS AT 75 ML/HR. ALL APPLICABLE ISOLATION PRECAUTIONS IN PLACE. ALL SAFETY MEASURES IN PLACED. HOB ELEVATED. BED IN LOCKED AND LOWEST POSITION WITH SIDERAILS UP, CALL LIGHT WITHIN REACH. WILL CONTINUE TO MONITOR PATIENT ACCORDINGLY.
--- NOTE | 2021-11-04 08:19 | NUR ---
RN CLOSING NOTE ALL CHANGES THAT OCCURRED WERE COMMUNICATED WITH AM RN. PATIENTS CONTINUES TO HAVE HR 40S , 50'S , 60'S. PATIENT KEPT DRY AND CLEAN THROUGHOUT THE NIGHT. ALL PATIENT NEEDS MET, SPOKE WITH HIS ON FACETIME AND SHE IS UPDATED ON PATIENTS NEEDS AND CARE. ALL ISOLATION PRECAUTIONS TAKEN, AND ALL SAFETY MEASURES TAKEN. WILL ENDORSE TO AM NURSE FOR PLAN OF CARE.
[2021-11-04 08:51] VITALS: BP 124/61
[2021-11-04] MEDS ORDERED: DUTASTERIDE (0.5 MG) 0.5 MG CAPSULE PO SCH (09:00)
[2021-11-04] MEDS: METFORMIN 500 MG TABLET PO SCH ×2 (09:04→17:18)
[2021-11-04] MEDS: DEXAMETHASONE SOD PHOSPHATE 10 MG/ML VIAL IV SCH (09:04)
[2021-11-04] MEDS: GABAPENTIN 300 MG CAPSULE PO SCH ×3 (09:04→17:18)
[2021-11-04] MEDS: ASPIRIN EC 81 MG TABLET.DR PO SCH (09:05)
[2021-11-04] MEDS: AMLODIPINE BESYLATE 5 MG TABLET PO SCH (09:05)
[2021-11-04] MEDS: CHOLECALCIFEROL 1,000 UNIT TABLET (VIT D3) PO SCH (09:05)
[2021-11-04] MEDS: PANTOPRAZOLE 40 MG TABLET.DR PO SCH (09:05)
[2021-11-04] MEDS: LOSARTAN POTASSIUM 50 MG TABLET PO SCH (09:05)
[2021-11-04] MEDS: TIMOLOL 0.5% SOLN OPHTH 5 ML BOTTLE LEFTEYE SCH ×2 (09:14→17:18)
[2021-11-04] MEDS: BRIMONIDINE TARTRATE OPHT SOLN 5 ML BOTTLE LEFTEYE SCH ×2 (09:14→17:18)
[2021-11-04 12:00] VITALS: BP 133/59
[2021-11-04] MEDS: LEVOFLOXACIN (250MG) 250 MG TABLET PO SCH (13:00)
[2021-11-04] MEDS: IV NS 0.9% 1,000 ML IV PRN (13:05)
[2021-11-04] MEDS: LATANOPROST EYE DROP 0.005% 2.5 ML BOTTLE LEFTEYE SCH (17:19)
--- NOTE | 2021-11-04 17:54 | NUR ---
RN NOTES PATIENT DISCHARGED TO HOME. PATIENT IN STABLE CONDITION UPON DISCHARGE. ALL BELONGINGS WITH PATIENT, BELONGINGS LIST SIGNED AND DISCHARGE INSTRUCTIONS SIGNED BY PATIENT AND GIVEN TO PATIENT. PATIENT WHEEL OUT AND PICKED UP BY DAUGHTER VIA PRIVATE CAR.
== END 2021-11-04 17:30 | disposition home or self-care (01) | DRG 177 ==
LOC: ER 09:57 → TELE1 14:08 → TRANSITION 14:30 → TELE1 16:34 → MEDSG1 11-02 10:36 → TELE1 11-04 06:01
DX: U07.1 COVID-19 (principal); J12.82 Pneumonia due to coronavirus disease 2019; G93.40 Encephalopathy, unspecified; E87.1 Hypo-osmolality and hyponatremia; Z79.84 Long term (current) use of oral hypoglycemic drugs; Z86.73 Personal history of transient ischemic attack (TIA), and cerebral infarction without residual deficits; Z90.49 Acquired absence of other specified parts of digestive tract; I25.10 Atherosclerotic heart disease of native coronary artery without angina pectoris; Z87.891 Personal history of nicotine dependence; I10 Essential (primary) hypertension; E78.5 Hyperlipidemia, unspecified; Z98.890 Other specified postprocedural states; K80.20 Calculus of gallbladder without cholecystitis without obstruction; E11.36 Type 2 diabetes mellitus with diabetic cataract; Z90.79 Acquired absence of other genital organ(s); Z88.1 Allergy status to other antibiotic agents; Z79.82 Long term (current) use of aspirin; Z79.899 Other long term (current) drug therapy; E86.1 Hypovolemia; G93.89 Other specified disorders of brain; H40.9 Unspecified glaucoma; Z82.3 Family history of stroke; Z82.49 Family history of ischemic heart disease and other diseases of the circulatory system
CPT/HCPCS: 36415; 70450-TC; 71045-TC; 71250-TC; 80048-TC; 80076-TC; 82140-TC; 82550-TC; 82728-TC; 82962-TC; 83605-TC; 83615-TC; 83735-TC; 83880; 84100-TC; 84300-TC; 84443-TC; 84484-TC; 85025-TC; 85378-TC; 85730-TC; 86140-TC; 87040-TC; 87081-TC; A4216; C9803; G0378; G0480; J1100; J1650; J1956; J7030; U0003

== ENCOUNTER 2022-05-03 12:53 | Emergency (ER) | payer OTHER ==
[~2022-05-03] VITALS: Ht 167.6 cm; Wt 72.6 kg
[~2022-05-03 12:53] MED LIST changes: +AMLO-212 PO; -AZIT1PAC9 PO; -BIMA2.5D5 OP; +BRIM5DRO2 LEFTEYE; -BRIM5DRO3 OP; -Cyclobenzaprine Hcl PO; +DUTA0.5C37 PO; +LATA2.5D15 LEFTEYE; +LOSA50TA39 PO; +METF-440 PO; -PRED5DRO16 OP; -TIMO5SOL11 OP; -VALS160T2 PO
--- NOTE | 2022-05-03 14:10 | NUR ---
RECEVED PT 86YRS MALE CAME FROM HOME sevededoff lt thumb avaulsion from using table saw today at 1230 pm
--- NOTE | 2022-05-03 14:15 | NUR ---
SR. PLUMMER AT BED SIDE see and examine pt spook with pt and
[2022-05-03] MEDS ORDERED: LIDOCAINE 1% INJ 50 ML MDV IJ ONE ×3 (14:25→14:30)
[2022-05-03] MEDS ORDERED: MORPHINE SULFATE INJ 4 MG/ML DISP.SYRIN ONE (14:25)
[2022-05-03] MEDS ORDERED: CLINDAMYCIN HCL 150 MG CAPSULE ONE (14:26)
[2022-05-03] MEDS ORDERED: TDAP [DIPH/PERTUSSIS/TET] 0.5 ML VIAL IM ONE ×2 (14:27→14:30)
[2022-05-03] MEDS ORDERED: CLINDAMYCIN HCL 150 MG CAPSULE PO ONE (14:30)
[2022-05-03] MEDS ORDERED: MORPHINE SULFATE INJ 2 MG/ML DISP.SYRIN IM ONE (14:30)
--- NOTE | 2022-05-03 14:40 | NUR ---
TD SHUT GIVEN NO ALLERIC RACTION
--- NOTE | 2022-05-03 15:17 | NUR ---
DR. PLUMMER AT BED SIDE for tuture done and place back piceof thump locl anth . done by
[2022-05-03 15:22] VITALS: BP 155/82
[2022-05-03] MEDS ORDERED: BACITRACIN ZINC OINT PACKET 1 EA PACKET TP ONE (15:30)
[2022-05-03] MEDS ORDERED: HYDR-4209 PO ×2 (15:34→15:48)
[2022-05-03] MEDS ORDERED: CLIN300C12 PO ×2 (15:34→15:48)
--- NOTE | 2022-05-03 15:50 | NUR ---
Patient discharged to home in stable condition. Written and verbal after care instructions given. Patient verbalizes understanding of instruction.
== END 2022-05-03 15:52 | disposition home or self-care (01) ==
LOC: ER 13:02
DX: S61.012A Laceration without foreign body of left thumb without damage to nail, initial encounter (principal); I10 Essential (primary) hypertension; E78.5 Hyperlipidemia, unspecified; E11.9 Type 2 diabetes mellitus without complications; Z88.8 Allergy status to other drugs, medicaments and biological substances; Z79.899 Other long term (current) drug therapy; W27.0XXA Contact with workbench tool, initial encounter; Y93.89 Activity, other specified; Y92.89 Other specified places as the place of occurrence of the external cause; Y99.8 Other external cause status
CPT/HCPCS: 12002; 73140; 90471; 90715; 96372; 99284; J2270; J3490